=== PATIENT | female | born 1945 | race Caucasian/White ===

== ENCOUNTER 2017-10-20 12:07 | Outpatient (CLI) | payer MEDICARE, BC ==
[~2017-10-20] VITALS: Ht 152.4 cm; Wt 55.9 kg
[2017-10-20 13:19] VITALS: BP 128/77; Ht 152.4 cm; Wt 55.9 kg
== END 2017-10-20 13:36 | disposition home or self-care (01) ==
LOC: D.OPS 12:07
DX: N32.81 Overactive bladder (principal)

== ENCOUNTER 2018-09-13 11:05 | Outpatient (CLI) | payer MEDICARE, BC ==
[~2018-09-13] VITALS: Ht 152.4 cm; Wt 55.5 kg
--- NOTE | ~2018-09-13 | HEMODYNAMI ---
PATIENT:TUSHAR ALARCON MEDICAL RECORD: [id number] : 43 LOCATION:[place] ADMISSION DATE: 09/13/18 Generatedon:09/13/201813:35 Patient name: TUSHAR ALARCON Patient #: [id number] SSN: D OB: 1945 Date of study: 09/13/2018 Page: Of Hemodynamic Procedure Report Patient Data Patient Demographics Procedure consent was obtained First Name: TUSHAR Gender: Female Last Name: AGNES : 1945 Middle Initial: W Age: 73 year(s) Patient #: [id number] Race: Unknown Additional ID: [id number] Contact details [address]: [address] [place] [address] State: [place] City: [place] Zip code: [address] Admission Admission Data Admission Date: 09/13/2018 Admission Time: 11:05 Procedure Procedure Types Cath Procedure Diagnostic Procedure LHC LHC w/Coronaries Procedure Description Procedure Date Procedure Date: 09/13/2018 Procedure Start Time: 13:06 Procedure End Time: 13:32 Procedure Staff Name Function Abhilash Sandoval MD Performing Physician Caitlin Denis RT Monitor Oz King RN Nurse Richie Guardado RT Scrub Procedure Data Cath Procedure Fluoroscopy Diagnostic fluoroscopy Total fluoroscopy Time: 9.1 time: 9.1 min min Diagnostic fluoroscopy Total fluoroscopy dose: 151 dose: 151 mGy mGy Contrast Material Contrast Material Type Amount (ml) Isovue 370 66 Entry Location Entry Primary Successful Side Size Upsize Upsize Entry Closure Irwin ccessful Closure Location (Fr) 1 (Fr) 2 (Fr) Remarks Device Remarks Radial Right 6 Fr Mechanical artery Short Compression Estimated blood loss: 10 ml Diagnostic catheters Device Type Used For End Catheter Placement DIAGNOSTIC [place] 110cm 5 Procedure Fr catheter ([id number]) DIAGNOSTIC AL1 5Fr Procedure catheter ([id number]) DIAGNOSTIC [place] 110cm 5 Procedure Fr catheter ([id number]) Procedure Complications No complications Procedure Medications Medication Administration Route Dosage Oxygen etCO2 Nasal cannula 2 l/min Lidocaine 2% added to field 20 Heparin Flush Bag added to field 2 bags (1000units/500ml NS) 0.9% NaCl I.V. 100 ml/hr Versed I.V. 1 mg Fentanyl I.V. 50 mcg Fentanyl I.V. 50 mcg Versed I.V. 1 mg Radial Cocktail I.A. 1 syringe (Verapamil 2mg/Nitro 400mcg/Heparin 1500units) Versed I.V. 1 mg Versed I.V. 1 mg Fentanyl I.V. 50 mcg Hemodynamics Rest Heart Rate: 79 (bpm) Pressure Samples Time Site Value (mmHg) Purpose Heart Use Rate(bpm) 13:11 AO 119/67(89) Snapshot 81 13:24 LV 179/1,23 Snapshot 84 Gradients Valve Time Site Site Mean SEP/DFP Peak To Heart Use 1 2 (mmHg) (sec/min) Peak Rate (mmHg) (bpm) Aortic 13:24 LV AO 78 Snapshots Pre Cath Intra NCS Post Cath Vital Signs Time Heart Resp SPO2 etCO2 NIBP (mmHg) Rhythm Pain Sedation Rate (ipm) (%) (mmHg) Status Level (bpm) 12:57:25 78 22 99 0 141/71(98) NSR 0 (11) 10(A) , No pain 13:01:27 76 15 100 11.9 128/73(105) NSR 0 (11) 10(A) , No pain 13:05:37 76 17 93 27.6 116/67(93) NSR 0 (11) 10(A) , No pain 13:09:47 83 12 95 20.2 125/65(95) NSR 0 (11) 10(A) , No pain 13:13:57 82 12 99 26.9 135/73(105) NSR 0 (11) 10(A) , No pain 13:18:09 86 17 99 26.9 129/74(111) NSR 0 (11) 10(A) , No pain 13:22:23 85 14 97 23.9 125/65(106) NSR 0 (11) 10(A) , No pain 13:26:35 87 15 94 10.4 109/61(86) NSR 0 (11) 10(A) , No pain 13:31:34 87 9 89 26.1 Measuring NSR 0 (11) 10(A) , No pain 13:31:46 84 8 100 34.4 133/61(77) NSR 0 (11) 10(A) , No pain Medications Time Medication Route Dose Verified Delivered Reason Notes Effectiveness by by 13:01:21 Oxygen etCO2 2 l/min Abhilash Buffie used for Nasal St Harshad King RN procedure cannula 13:01:28 Lidocaine 2% added 20ml Abhilash Buffie for local to vial St Harshad King RN anesthetic field TURK 13:01:35 Heparin Flush added 2 bags Abhilash Buffie used for Bag to St Harshad King RN procedure (1000units/500ml field TURK NS) 13:01:43 0.9% NaCl I.V. 100 Abhilashmigel Carrascoie Per ml/hr St Harshad King RN physician 13:03:18 Fentanyl I.V. 50 mcg Abhilash Carrascoie for sedation St Harshad King RN, MD 13:03:30 Versed I.V. 1 mg Abhilash Carrascoie for sedation St Harshad King RN, MD 13:06:53 Radial Cocktail I.A. 1 Abhilash Hung for (Verapamil syringe [place] St Patricia vasodilation 2mg/Nitro MD TURK 400mcg/Heparin 1500units) 13:10:12 Versed I.V. 1 mg Abhilash Daniloie for sedation St Harshad King RN, MD 13:10:19 Fentanyl I.V. 50 mcg Abhilash Carrascoie for sedation St Harshad King RN, MD 13:14:47 Versed I.V. 1 mg Abhilash Buffie for sedation St Harshad King RN, MD 13:22:31 Versed I.V. 1 mg Abhilash Buffie for sedation St Harshad King RN, MD 13:22:35 Fentanyl I.V. 50 mcg Abhilash Carrascoie for sedation St Harshad King RN, MD Procedure Log Time Note 12:30:40 Time tracking: Regular hours (M-F 7:00 - 5:00) 12:30:45 Plan of Care:Hemodynamics will remain stable., Cardiac rhythm will remain stable., Comfort level will be maintained., Respiratory function will remain adequate., Patient/ family verbilizes understanding of procedure., Procedure tolerated without complication., Recovers from procedure without complications.. 12:40:06 Caitlin Counts RT(R) sent for patient. Start room use. 12:48:51 Patient received from Pre/Post Procedure Room to CCL 3 Alert and oriented. Tansferred to table in Supine position. 12:48:52 Warm blankets applied, and nancy hugger turned on for patient comfort. 12:48:53 Correct patient and procedure confirmed by team. 12:48:54 Signed procedure consent form obtained from patient. 12:48:55 ECG and BP/O2 sat monitors applied to patient. 12:56:16 Baseline sample Acquired. 12:56:16 Vital chart was started 12:56:20 Rhythm: sinus rhythm 12:56:35 Full Disclosure recording started 13:00:07 H&P Date Dictated: 09/06/2018 Within 30 days and on chart., H&P Addendum completed by physician on day of procedure. (MUST COMPLETE FOR ALL OUTPATIENTS). 13:00:08 Pre-procedure instructions explained to patient. 13:00:08 Pre-op teaching completed and patient verbalized understanding. 13:00:11 Family in patients room. 13:00:13 Patient NPO since Midnight. 13:00:14 Is the patient allergic to Iodine/contrast media? No. 13:00:18 Is patient on blood thinner?No 13:00:22 Patient diabetic? No. 13:00:29 Previous problem with sedation/anesthesia? No ? 13:00:30 Snore? No 13:00:31 Sleep apnea? No 13:00:32 Deviated septum? No 13:00:32 Opens mouth fully? Yes 13:00:33 Sticks out tongue? Yes 13:00:35 Airway obstruction? No ? 13:00:36 Dentures? No ? 13:00:39 Pre procedure: right dorsailis pedis pulse 1+ Palpable, but thready & weak; easily obliterated 13:00:41 Modified Roberth's test Ulnar < 7 seconds 13:00:43 Patient pain scale 0/10 ?. 13:00:50 IV patent on arrival in left forearm with 0.9% NaCl at KVO. 13:00:59 Lab results completed and on chart. 13:01:03 Right Radial & Right Groin area was prepped with chlora-prep and draped in sterile fashion 13:01:04 Alarms reviewed by R. N. 13:01:05 Sharps counted by scrub and verified by R.N. 13:01:21 Oxygen 2 l/min etCO2 Nasal cannula was administered by Oz King RN; used for procedure; 13:01:28 Lidocaine 2% 20ml vial added to field was administered by Oz King RN; for local anesthetic; 13:01:35 Heparin Flush Bag (1000units/500ml NS) 2 bags added to field was administered by Oz King RN; used for procedure; 13:01:43 0.9% NaCl 100 ml/hr I.V. was administered by Oz King RN; Per physician; 13:02:10 --------ALL STOP TIME OUT------ 13:02:10 Final Timeout: patient, procedure, and site verified with staff and physician. All members of the team are in agreement. 13:02:13 Right Radial & Right Groin site verified by team. 13:02:16 Maximum allowable Isovue 370 dose 300ml. Physician notified. (300ml for normal creatinines. For patients with creatinine of 1.7 or higher multiply weight(kg) x 5 divided by creatinine.) 13:02:21 Fire Safety Assessment: A--An alcohol-based skin anteseptic being used preoperatively., C--Open oxygen or nitrous oxide is being used., D--An ESU, laser, or fiber-optic light is being used. 13:02:23 Physical assessment completed. ASA score P 2 - A patient with mild systemic disease as per Abhilash Sandoval MD. 13:02:26 Sedation plan: IV Moderate Sedation Medication:Versed, Fentanyl 13:03:18 Fentanyl 50 mcg I.V. was administered by Oz King RN; for sedation; 13:03:30 Versed 1 mg I.V. was administered by Oz King RN; for sedation; 13:04:30 Use device set Radial Dx or PCI 13:04:31 Tegaderm 4 x 4 (1626W) opened to sterile field. 13:04:31 ACIST Manifold (52545) opened to sterile field. 13:04:32 ACIST Hand Control (47391) opened to sterile field. 13:04:33 ACIST Syringe (84014) opened to sterile field. 13:04:34 Medline Cath Pack ([id number]) opened to sterile field. 13:04:34 Bag Decanter () opened to sterile field. 13:04:34 DIAGNOSTIC WIRE .035 260cm J wire (671438) opened to sterile field. 13:04:35 MBrace Wrist Support ([id number]) opened to sterile field. 13:04:37 SHEATH 6FR Slender (29-1644) opened to sterile field. 13:06:12 Procedure started. 13:06:17 Local anesthetic to right radial artery with Lidocaine 2% by Abhilash Sandoval MD.INITIAL ACCESS ONLY 13:06:53 Radial Cocktail (Verapamil 2mg/Nitro 400mcg/Heparin 1500units) 1 syringe I.A. was administered by Abhilash Sandoval MD; for vasodilation; 13:07:05 A 6 Fr Short sheath was inserted into the Right Radial artery 13:07:57 A DIAGNOSTIC [place] 110cm 5 Fr catheter (219066) was advanced over the wire and used for Procedure. 13:10:05 GLIDE WIRE ANGLE 260cm (JD6629) opened to sterile field. 13:10:12 Versed 1 mg I.V. was administered by Oz King RN; for sedation; 13:10:19 Fentanyl 50 mcg I.V. was administered by Oz King RN; for sedation; 13:10:20 [place] wire used to advance catheter. 13:12:00 Wire removed. 13:12:51 RCA angiography performed. 13:13:04 Catheter exchanged over wire. 13:14:05 GUIDE 6FR JL 3.5 guide catheter ([id number]) opened to sterile field. 13:14:21 6 Fr JL 3.5 guide catheter was inserted over the wire 13:14:47 Versed 1 mg I.V. was administered by Oz King RN; for sedation; 13:16:54 LCA angiography performed. 13:17:23 Catheter exchanged over wire. 13:19:06 ROADRUNNER .035 260 glide wire (W60055) opened to sterile field. 13:19:10 A DIAGNOSTIC AL1 5Fr catheter (626388M) was advanced over the wire and used for Procedure. 13:19:30 Roadrunner wire advanced in attempt to cross the aortic valve. 13:22:03 Catheter exchanged over wire. 13:22:31 Versed 1 mg I.V. was administered by Oz King RN; for sedation; 13:22:35 Fentanyl 50 mcg I.V. was administered by Oz King RN; for sedation; 13:23:58 A DIAGNOSTIC [place] 110cm 5 Fr catheter (477574) was advanced over the wire and used for Procedure. 13:25:27 LV angiography performed. 13:25:28 LV gram done using SELLERS 13::37 EF : 65 % 13:25:40 LV hemodynamics recorded. 13::43 Injector settings: Ml/sec: 7, Volume: 15, 13:25:47 Catheter exchanged over wire. 13:25:51 TR BAND Standard ([id number]) opened to sterile field. 13:28:19 Sheath removed intact; hemostasis achieved with Mechanical Compression to the Right Radial artery. 13:28:20 Procedure ended.(Physican Out) 13::53 Fluoroscopy time 09.10 minutes. 13::57 Flurop Dose total: 151 13::57 Fluoroscopy dose: 151 mGy 13:29:02 Contrast amount:Isovue 370 66ml. 13:29:03 Sharps counted by scrub and verified by R.N. 13:30:01 TR band inflated with 12cc of air. 13:30:02 Insertion/operative site no bleeding no hematoma. 13:30:03 Post Procedure Pulses reassessed and unchanged 13:30:06 Post-procedure physical assessment completed. ASA score P 2 - A patient with mild systemic disease as per Abhliash Sandoval MD. 13:30:08 Post procedure rhythm: unchanged. 13:30:11 Estimated blood loss: 10 ml 13:30:13 Post procedure instruction explained to patient.Patient verbalizes understanding. 13:30:13 Patient needs reinforcement of post procedure teaching. 13:30:56 Procedure and supply charges have been captured, reviewed, submitted and are correct. 13:30:59 Procedure Complication : No complications 13:32:11 Vital chart was stopped 13:32:11 See physician's report for complete and final results. 13:32:15 Report given to Pre/Post Procedure Room. 13:32:20 Patient transfered to Pre/Post Procedure Room with Stretcher. 13:32:22 Procedure ended. 13:32:22 Full Disclosure recording stopped 13:34:38 End room use (Document Last) Device Usage Item Name Manufacture Quantity Catalog Hospital Part Current Minimal Lot# / Number Charge Number Stock Stock Serial# Code Tegaderm 4 3M 1 1626W [id number] [id number] 002797 5 x 4 (1626W) ACIST Acist 1 88862 564552 018234 888898 5 Manifold Medical (07846) Systems Inc ACIST Hand Acist 1 68575 518666 160920 711264 5 Control Medical (19266) Systems Inc ACIST Acist 1 74149 943487 065591 500528 20 Syringe Medical (15810) Systems Inc Medline Medline 1 [id number] 728870 19036 425544 5 Cath Pack ([id number]) Bag Microtek 1 2002S 746197 06644 542836 5 Decanter Medical Inc. (2001S) DIAGNOSTIC [facility] [place] 1 538253 440104 353787 297382 30 WIRE .035 260cm J wire (864354) MBrace Advanced 1 140-0250-00 177130 38363 064399 5 Wrist Vascular Support Dynamics ([id number]) SHEATH 6FR Terumo 1 [id number] 794115 222834 061500 5 Slender (80-1060) DIAGNOSTIC Terumo 1 40-7933 155480 929147 954928 5 [place] 110cm 5 Fr catheter (251254) GLIDE WIRE Terumo 1 CY4921 764297 262715 706408 5 ANGLE 260cm (HG5379) GUIDE 6FR Medtronic 1 [id number] 945518 96151 933598 1 JL 3.5 guide catheter (IK8EA15) [facility] 1 C60169 704185 646406 068163 5 .035 260 glide wire (M80046) DIAGNOSTIC Cardinal 1 130549S 306246 859544 707994 15 AL1 5Fr Health catheter (152524U) TR BAND Terumo 1 [id number] 373242 368412 398923 40 Standard ([id number]) Signature Audit [place] Stage Time Signature Unsigned Intra-Procedure 09/13/2018 Richie Guardado 1:35:28 PM RT(R) Signatures Monitor : Caitlin Signature : Counts RT Date : Time : [facility] [address] [place] [id number]
[2018-09-13] MEDS ORDERED: TRAZODONE HCL150 MG PO (11:22)
[2018-09-13] MEDS ORDERED: NORVASC5 MG PO (11:22)
[2018-09-13] MEDS ORDERED: CYMBALTA60 MG PO (11:23)
[2018-09-13] MEDS ORDERED: WELLBUTRIN XL150 M1 PO (11:23)
[2018-09-13] MEDS ORDERED: CYMBALTA30 MG PO (11:23)
[2018-09-13] MEDS ORDERED: DONEPEZIL HCL10 MG PO (11:24)
[2018-09-13 11:35] VITALS: BP 140/69; BMI 23.8
[2018-09-13 11:58] LABS: ANION GAP 14.8 mmol/L (8-16); CALCIUM 9.3 mg/dL (8.5-10.1); CARBON DIOXIDE 23.7 mmol/L (21.0-32.0); CREATININE - SERUM 0.9 mg/dL (0.6-1.3); POTASSIUM - SERUM 3.5 mmol/L (3.5-5.1)
[2018-09-13 12:06] LABS: HEMATOCRIT 39.4 % (36.0-48.0); LYMPHOCYTES 21.5 % (15-50); MCH 27.4 pg (26.0-34.0); MCV 82.9 fL (80.0-100.0); MEAN PLATELET VOLUME 10.2 fL (7.4-10.4); NEUTROPHILS 67.9 % (40-80); PLATELET COUNT 318 10x3/uL (130-400); RBC 4.75 10x6/uL (4.00-5.40); RDW 14.2 % (11.5-14.5); WBC 7.1 10x3/uL (4.8-10.8)
--- NOTE | 2018-09-13 13:45 | NUR ---
PHYSICIAN AT BEDSIDE TO UPDATE PATIENT AND FAMILY.
--- NOTE | 2018-09-13 13:55 | NUR ---
PATIENT AWAKE, SITTING UP IN BED EATING TURKEY SANDWICH AND DRINKING WATER, NO N/V. RIGHT TR BAND IN PLACE, NO S/S OF BLEEDING OR HEMATOMA. NO C/O PAIN, NUMBNESS, OR TINGLING. VSS ON 1L NC. SPOUSE PRESENT AT BEDSIDE.
--- NOTE | 2018-09-13 14:30 | NUR ---
BEGIN AIR REMOVAL PROTOCOL FOR TR BAND, 4CC OF AIR REMOVED, NO S/S OF BLEEDING OR HEMATOMA. NO C/O PAIN, NUMBNESS, OR TINGLING. VSS ON ROOM AIR. NO N/V.
--- NOTE | 2018-09-13 15:01 | NUR ---
DR. BROWN AT BEDSIDE TO EDUCATE AND DISCUSS SURGICAL OPTIONS WITH PATIENT AND PATIENT SPOUSE. RIGHT TR BAND IN PLACE, NO S/S OF BLEEDING OR HEMATOMA.
--- NOTE | 2018-09-13 15:05 | NUR ---
4CC OF AIR REMOVED FROM TR BAND, NO S/S OF BLEEDING OR HEMATOMA. VERBAL AND WRITTEN DISCHARGE INSTRUCTIONS GIVEN TO PATIENT AND SPOUSE, BOTH VOICE UNDERSTANDING. VSS ON ROOM AIR.
--- NOTE | 2018-09-13 15:25 | NUR ---
IV REMOVED. VSS ON ROOM AIR. RIGHT TR BAND IN PLACE, NO S/S OF BLEEDING OR HEMATOMA.
--- NOTE | 2018-09-13 15:50 | NUR ---
PT AGREES TO HAVE CABG AT [facility]. [place] [facility] [place] TO DIS[place]. TR BAND REMOVED. DRESSING APPLIED. NO BLEEDING/HEMATOMA NOTED. TOLERATED WELL.
--- NOTE | 2018-09-13 15:59 | NUR ---
GROCERY CARRIER AT BEDSIDE FOR CAROTID DOPPLERS
[2018-09-13 16:02] VITALS: Ht 152.4 cm; Wt 55.5 kg
--- NOTE | 2018-09-13 16:15 | NUR ---
PT TAKEN OUT TO VEHICLE BY WHEELCHAIR. NO S/S OF DISTRESS NOTED. ALL BELONGINGS AND PAPERWORK IN HAND.
[2018-09-14] MEDS ORDERED: NAMENDA5 MG PO (11:04)
[2018-09-14] MEDS ORDERED: OMEPRAZOLE20 M1 PO (11:05)
--- NOTE | 2018-09-19 13:26 | OP ---
PATIENT NAME: TUSHAR ALARCON MEDICAL RECORD: [id number] :43 LOCATION:D.CAT ADMISSION DATE: SURGEON: EVER PETERSEN MD DATE OF OPERATION: 09/13/2018 PROCEDURE: Left heart catheterization, selective coronary angiography, right radial approach. CATHETERS: [place] catheter as well as AL catheter and a JL4. Procedure was well tolerated. The patient returned to the gama, sheath removed. Adequate hemostasis was obtained. FINDINGS: Left ventriculography in 30-degree SELLERS view shows no wall motion. Gradient across the aortic valve is 60 mmHg on pullback. CORONARY ANATOMY: LEFT MAIN: Left main is free of disease. LAD: Has a tight stenosis in its proximal third of approximately 80% to 90%. CIRCUMFLEX: Codominant system, has a mid portion stenosis of 80% somewhat more complex. RIGHT CORONARY ARTERY: Totally occluded and fills via left to right collaterals. IMPRESSION: Multiple medical risks for coronary artery disease AAAS. CT surgeon is consulted for valve CABG. TRANSINT:[id number] Voice Confirmation ID: [id number] DOCUMENT ID: [id number] EVER PETERSEN MD at 1326 CC: [id number] DICTATION DATE: 09/13/18 1333 KIER HAND: 09/13/18 1350 DEP CLI 09/13/18 [id number] [place] [address]
== END 2018-09-13 16:15 | disposition home or self-care (01) ==
LOC: D.CATH 11:05
PROVIDERS: ATTEND Internal Medicine Interventional Cardiology
DX: I25.119 Atherosclerotic heart disease of native coronary artery with unspecified angina pectoris (principal); Z01.812 Encounter for preprocedural laboratory examination; I35.0 Nonrheumatic aortic (valve) stenosis; F03.90 Unspecified dementia, unspecified severity, without behavioral disturbance, psychotic disturbance, mood disturbance, and anxiety; I10 Essential (primary) hypertension; E78.5 Hyperlipidemia, unspecified; Z82.49 Family history of ischemic heart disease and other diseases of the circulatory system; K21.9 Gastro-esophageal reflux disease without esophagitis; Z96.653 Presence of artificial knee joint, bilateral; Z79.899 Other long term (current) drug therapy

== ENCOUNTER 2018-09-14 07:44 | Inpatient (IN) | payer MEDICARE, BC ==
[~2018-09-14] VITALS: Ht 152.4 cm; Wt 56.5 kg
[~2018-09-14 07:44] MED LIST: CYMBALTA30 MG PO; CYMBALTA60 MG PO; DONEPEZIL HCL10 MG PO; NORVASC5 MG PO; TRAZODONE HCL150 MG PO; WELLBUTRIN XL150 M1 PO
[2018-09-14] MEDS ORDERED: NAMENDA5 MG PO (11:04)
[2018-09-14] MEDS ORDERED: OMEPRAZOLE20 M1 PO (11:05)
[2018-09-14 13:03] LABS: BASOPHILS 0.2 % (0-2); EOSINOPHILS 1.2 % (0-7); HEMATOCRIT 39.6 % (36.0-48.0); HEMOGLOBIN 13.2 g/dL (12-16); IMMATURE GRANULOCYTES 0.4 % (0-5); LYMPHOCYTES 21.6 % (15-50); MCH 27.4 pg (26.0-34.0); MCHC 33.3 g/dL (31.0-37.0); MCV 82.3 fL (80.0-100.0); MEAN PLATELET VOLUME 10.8 fL (7.4-10.4); MONOCYTES 6.4 % (2-11); NEUTROPHILS 70.2 % (40-80); PLATELET COUNT 362 10x3/uL (130-400); RBC 4.81 10x6/uL (4.00-5.40); RDW 14.4 % (11.5-14.5)
[2018-09-14 13:09] LABS: INR 1.04 (0.85-1.17); PROTIME 13.1 SECONDS (11.6-15.0)
[2018-09-14 13:10] LABS: APTT 27.9 SECONDS (22.8-39.4)
[2018-09-14 13:22] LABS: ALBUMIN 3.9 g/dL (3.4-5.0); ALKALINE PHOSPHATASE 134 U/L (46-116); ALT (SGPT) 26 U/L (10-68); BILIRUBIN - TOTAL 0.32 mg/dL (0.2-1.3); CALC OSMOLALITY 261 mosm/kg (275-300); CALCIUM 9.3 mg/dL (8.5-10.1); CARBON DIOXIDE 22.6 mmol/L (21.0-32.0); CHLORIDE - SERUM 97 mmol/L (98-107); CHOLESTEROL, TOTAL 256 mg/dL (0-200); CREATININE - SERUM 0.7 mg/dL (0.6-1.3); GLUCOSE 84 mg/dL (74-106); PHOSPHOROUS 3.1 mg/dL (2.5-4.9); POTASSIUM - SERUM 3.7 mmol/L (3.5-5.1); PROTEIN - SERUM 7.6 g/dL (6.4-8.2); SODIUM 131 mmol/L (136-145); T4 THYROXIN - FREE 1.29 ng/dL (0.76-1.46); THYROID STIMULATING HORMONE 1.99 uIU/mL (0.36-3.74); UREA NITROGEN 13 mg/dL (7-18); URIC ACID 3.3 mg/dL (2.6-7.2); eGFR NON AFRICAN AMERICAN 87 mL/min (90-120)
[2018-09-14 13:54] LABS: APPEARANCE CLEAR (CLEAR); BILIRUBIN NEGATIVE (NEGATIVE); COLOR STRAW (YELLOW); GLUCOSE NEGATIVE (NEGATIVE); KETONE NEGATIVE (NEGATIVE); NITRITE NEGATIVE (NEGATIVE); PROTEIN NEGATIVE (NEGATIVE); SPECIFIC GRAVITY 1.005 (1.005-1.020); UROBILINOGEN NORMAL (NORMAL)
[2018-09-14 13:55] LABS: WHITE CELLS - URINE 0-5 /hpf (0-5)
[2018-09-14 13:57] LABS: BACTERIA FEW /hpf (NONE SEEN); EPITHELIAL CELLS 0-5 /hpf (0-5); RED CELLS - URINE OCC /hpf (0-5)
[2018-09-15] VITALS (31 sets, daily range): BP systolic 75–157; BP diastolic 39–76; BMI 29.7; BMI 23.4
[2018-09-15] MEDS ORDERED: TRAZODONE HCL150 MG PO (05:53)
[2018-09-15] MEDS ORDERED: CYMBALTA30 MG (05:54)
[2018-09-15 09:14] LABS: APPEARANCE SL CLDY (CLEAR); BILIRUBIN NEGATIVE (NEGATIVE); COLOR YELLOW (YELLOW); GLUCOSE NEGATIVE (NEGATIVE); KETONE MODERATE mg/dL (NEGATIVE); NITRITE NEGATIVE (NEGATIVE); PROTEIN TRACE mg/dL (NEGATIVE); SPECIFIC GRAVITY 1.025 (1.005-1.020); UROBILINOGEN NORMAL (NORMAL)
[2018-09-15 09:15] LABS: AMORPHOUS SEDIMENT <1+ /lpf (NONE SEEN); BACTERIA MODERATE /hpf (NONE SEEN); EPITHELIAL CELLS 0-5 /hpf (0-5); MUCUS <1+ /lpf (NONE SEEN); RED CELLS - URINE 0-5 /hpf (0-5); WHITE CELLS - URINE 0-5 /hpf (0-5)
[2018-09-15 13:43] LABS: MCHC 32.7 g/dL (31.0-37.0); MCV 82.7 fL (80.0-100.0); MEAN PLATELET VOLUME 9.4 fL (7.4-10.4); RDW 14.2 % (11.5-14.5); WBC 9.4 10x3/uL (4.8-10.8)
[2018-09-15 13:45] LABS: HEMATOCRIT 19.6 % (36.0-48.0); HEMOGLOBIN 6.4 g/dL (12-16); RBC 2.37 10x6/uL (4.00-5.40)
[2018-09-15 13:51] LABS: APTT 32.4 SECONDS (22.8-39.4)
[2018-09-15 13:54] LABS: INR 1.52 (0.85-1.17); PROTIME 17.7 SECONDS (11.6-15.0)
--- NOTE | 2018-09-15 18:28 | NUR ---
1500-RECCIEVED FROM OR ACCOMPANIED BY OR TEAM-PLACED TO VENT PER RT-PLACED TO MONITOR FOR SR -PACER ON STANDBY- 164-DR BROWN-NOTIFIED OF PA PRESSURES-NO FURTHER ORDERS- 6613-MMD-JXYVR-RESULTSCALLED TO DR BROWNUSHJV-RVPLLH-YV KEEP ON VENT-30MIN CO2 LEVEL>45 1829-RECHECKED ABG-PT IN PANIC-BANGING AT SIDE RAILS-RESULTS CALLED TO DR BROWN-ORDER RECIEVED TO EXTUBATE
--- NOTE | 2018-09-15 19:11 | NUR ---
ORAL CARE DONE WITH PERIDEX
--- NOTE | 2018-09-15 19:30 | NUR ---
SHIFT ASSESSMENT COMPLETE, PER NURSING FLOWSHEET, RESPIRATORY CONTINUES AT BEDSIDE FOR THIS RECENTLY EXTUBATED PATIENT. SOFT BUE WRIST RESTRAINTS HAVE BEEN REMOVED, PATIENT IS VERY HOARSE AND C/O SORE THROAT, WILL CONTINUE AT PATIENT BEDSIDE FOR MONITORING, PATIENT REPOSITIONED, ORAL CARE PROVIDED
--- NOTE | 2018-09-15 20:00 | NUR ---
AND DAUGHTERS X2 AT BEDSIDE, UPDATE GIVEN QUESTIONS ANSWERED
--- NOTE | 2018-09-15 21:00 | NUR ---
PATIENT REPOSITIONED, IN ATTEMPTS TO HELP RESOLVE PAIN AND RESTLESSNESS, PAIN MEDICATION PREVIOUSLY GIVEN, CONTINUING AT PATIENT BEDSIDE FOR MONITORING
[2018-09-15 21:24] LABS: BASOPHILS 0.1 % (0-2); EOSINOPHILS 0.1 % (0-7); IMMATURE GRANULOCYTES 0.2 % (0-5); LYMPHOCYTES 4.2 % (15-50); MCH 27.5 pg (26.0-34.0); MCHC 32.6 g/dL (31.0-37.0); MCV 84.1 fL (80.0-100.0); MEAN PLATELET VOLUME 10.4 fL (7.4-10.4); MONOCYTES 7.2 % (2-11); NEUTROPHILS 88.2 % (40-80); PLATELET COUNT 212 10x3/uL (130-400); RDW 14.3 % (11.5-14.5)
[2018-09-15 21:27] LABS: HEMATOCRIT 29.1 % (36.0-48.0); HEMOGLOBIN 9.5 g/dL (12-16); RBC 3.46 10x6/uL (4.00-5.40); WBC 12.7 10x3/uL (4.8-10.8)
[2018-09-15 21:38] LABS: ALBUMIN 3.1 g/dL (3.4-5.0); ANION GAP 13.8 mmol/L (8-16); BILIRUBIN - TOTAL 0.52 mg/dL (0.2-1.3); CALCIUM 7.9 mg/dL (8.5-10.1); CARBON DIOXIDE 26.7 mmol/L (21.0-32.0); CREATININE - SERUM 0.9 mg/dL (0.6-1.3); MAGNESIUM - SERUM 2.1 mg/dL (1.8-2.4); POTASSIUM - SERUM 4.5 mmol/L (3.5-5.1); PROTEIN - SERUM 5.6 g/dL (6.4-8.2)
--- NOTE | 2018-09-15 22:20 | NUR ---
DR Baeza CALLED, UPDATE GIVEN, NEW ORDERS RECEIVED
--- NOTE | 2018-09-15 23:00 | NUR ---
RE-ASSESSMENT COMPLETE, PER NURSING FLOWSHEET. PATIENT REPOSITIONED, PATIENT TOLERATING ICE CHIPS AND H20 WITH PO MEDS WITH NO N/V, CONTINUE POC
--- NOTE | 2018-09-15 23:30 | NUR ---
PATIENT SAT UP ON BEDSIDE TO CADEN Solis NURSE ASSISST. PATIENT TOLERATED WELL.
--- NOTE | 2018-09-15 23:50 | NUR ---
PRBC ORDER INITATED PER DR Baeza ORDER.
[2018-09-16] VITALS (37 sets, daily range): BP systolic 100–142; BP diastolic 39–68; Ht 152.4 cm; Wt 56.5 kg
--- NOTE | 2018-09-16 01:00 | NUR ---
PATIENT REPOSITIONED, PO PAIN MEDICATIONS PREVIOUSLY GIVEN, THIS NURSE AT BEDSIDE FOR CONTINUOUS MONITORING OF THIS PATIENT, CARRILLO CARE PROVIDED
--- NOTE | 2018-09-16 02:00 | NUR ---
PRBC INFUSION COMPLETE.
--- NOTE | 2018-09-16 03:00 | NUR ---
RE-ASSESSMENT COMPLETE. PATIENT REPOSITIONED, ORAL CARE PROVIDED. CONTINUOUSLY MONITORING VS, PATIENT IS CURRENTLY VERY CONFUSED AND AGGITATED. THIS NURSE CONTINUES AT BEDSIDE
--- NOTE | 2018-09-16 05:00 | NUR ---
PATIENT REPOSITIONED, PARTIAL LINEN CHANGE, VIKTOR REMAINS OFF SINCE 114, CONTINUING TO MONITOR FROM DOOR OF PATIENT ROOM, PRESENCE IN HER ROOM EXACERBATES AGGITATION/ANXIETY. ALTHOUGH, THIS PATIENT REMAINS IN LINE OF SITE FOR THIS NURSE
[2018-09-16 05:19] LABS: HEMOGLOBIN 10.3 g/dL (12-16); MCH 27.8 pg (26.0-34.0); MCHC 33.2 g/dL (31.0-37.0); MCV 83.6 fL (80.0-100.0); MEAN PLATELET VOLUME 10.3 fL (7.4-10.4); RBC 3.71 10x6/uL (4.00-5.40); RDW 14.4 % (11.5-14.5); WBC 12.4 10x3/uL (4.8-10.8)
[2018-09-16 05:30] LABS: ALBUMIN 2.9 g/dL (3.4-5.0); ALKALINE PHOSPHATASE 71 U/L (46-116); ALT (SGPT) 30 U/L (10-68); BILIRUBIN - TOTAL 0.53 mg/dL (0.2-1.3); CALCIUM 7.6 mg/dL (8.5-10.1); CARBON DIOXIDE 23.6 mmol/L (21.0-32.0); CHLORIDE - SERUM 103 mmol/L (98-107); POTASSIUM - SERUM 4.3 mmol/L (3.5-5.1); PROTEIN - SERUM 5.6 g/dL (6.4-8.2); SODIUM 137 mmol/L (136-145); UREA NITROGEN 15 mg/dL (7-18)
[2018-09-16 05:38] LABS: CALC OSMOLALITY 276 mosm/kg (275-300); CREATININE - SERUM 0.6 mg/dL (0.6-1.3); GLUCOSE 130 mg/dL (74-106); eGFR NON AFRICAN AMERICAN > 90 mL/min (90-120)
--- NOTE | 2018-09-16 08:22 | NUR ---
0730-RECIEVED AWAKE AND ALERT-IN BED WITH HOB 30 DEGREES-AWARE IN HOSPITAL-ABLE TO RELATE SERIES OF EVENTS PRIOR TO HOSPITALIZATION-THEN STATES 'JUST DROPPED OFF AND LEFT '-BEGAN CALLING OUT FOR DAUGHTER -ATTEMPTED TO ORIENT TO SITUATION-WITH NO EFFECT-CALLED DAUGHTER TO REQUEST IF COULD SIT WITH MOTHER DUE TO SEVERE EMOTIONAL AGITATION-PRODUCTIVE COUGH AND ABLE TO SPLINT WITH PILLOW EASILY 0800-ASSISTED PT TO CHAIR-REASSURED DAUGHTER WAS CALLED-AND MAKING ARRANGEMENTS TO COME AND SIT WITH HER-REPITIVELY STATING ' I'M SCARED-NO RESPONSE OR CHANGE TO BEHAVIOR PATTERN WITH REASSURANCE-CLEAR LIQUID DIET TAKEN- 829-CURRENTLY CALLING OUT FOR -ATTEMPTED TO ORIENT -AND AT WORK-PT ABLE TO STATE BUSINESS AND WORK OF
--- NOTE | 2018-09-16 09:55 | OP ---
PATIENT NAME: TUSHAR ALARCON MEDICAL RECORD: [id number] :43 LOCATION:[facility] ADMISSION DATE:09/15/18 SURGEON: WALLY BROWN MD DATE OF OPERATION: 09/15/2018 SURGEON: Wally Brown MD SPEED BELT SANDER: Adolfo Avalos. OPERATION PERFORMED: 1. Aortic valve replacement (19 mm [place] Rosa Integris pericardial bioprosthesis). 2. Coronary artery bypass graft times 2 (left internal mammary to LAD, reverse saphenous vein graft from aorta to obtuse marginal). 3. Endoscopic saphenous vein harvest. PREOPERATIVE DIAGNOSES: Aortic stenosis, coronary artery disease. POSTOPERATIVE DIAGNOSES: Aortic stenosis, coronary artery disease. ANESTHESIA: General endotracheal anesthesia. ESTIMATED BLOOD LOSS: 1. Total cardiopulmonary bypass with Cell Saver retransfusion. 2. One packed red blood cells, one platelet count, two FFP. SPECIMENS: Aortic valve leaflets. COMPLICATIONS: None. CONDITION: Stable. DISPOSITION: CV ICU. OPERATIVE FINDINGS: 1. Transesophageal echocardiography confirmed severe aortic stenosis and calcification of the mitral valve annulus with trace to 1+ mitral regurgitation, no aortic valvular perivalvular insufficiency after replacement and good contractility with left ventricular hypertrophy. 2. Good quality greater saphenous vein. The obtuse marginal as seen was severely diseased down to the bifurcation. The more distal obtuse marginal was small and the inferior wall vessels seen filling by collaterals on the coronary angiograms were not amenable to bypass due to size. 3. LAD severely diseased 1.5 mm vessel with good Doppler signal after anastomosis and after reversal of heparin. 4. Severely calcified aortic valve leaflets and annulus. OPERATIVE INDICATION: Aortic stenosis, coronary artery disease, unstable angina. DESCRIPTION OF PROCEDURE: The patient was brought to the operating suite. General anesthesia obtained. The patient was prepped and draped and greater saphenous vein harvested endoscopically from the right lower extremity. Side branches were divided with electrocautery. The vessel ligated proximally and distally, and removed. Side branches were tied. Thin sides were oversewn. The OPERATIVE REPORT [id number] TUSHAR ALARCON leg was later closed in 2 layers and wrapped with elastic wrap. Median sternotomy incision was made. Subcutaneous tissue was divided with electrocautery. Sternum was divided with a saw. Left hemisternum was elevated. Left pleural cavity was entered. Left internal mammary artery and vein was taken down as a pedicle graft. Sternal retractor was placed. Pericardium was opened. Heparin was given. The aorta was cannulated. Dual stage venous cannula was inserted. The internal mammary was clipped distally midway for anastomosis. The patient was placed on cardiopulmonary bypass. Sites for distal anastomosis were selected. Retrograde cardioplegic cannula was inserted with the heart filled with blood, but the tip of the cannula perforated midpoint of the coronary sinus. The cannula was removed. The perforation was oversewn with Prolene and no further bleeding when inspected later. The antegrade cardioplegia needle was inserted. The patient was cooled. Crossclamp was placed. Cardioplegia was given antegrade including down the completed vein grafts at 15 and 20 minute intervals. Distal anastomoses were performed in standard technique. The left ventricular vent was placed through the right superior pulmonary vein. Aortotomy was performed. Aortic valve visualized. Leaflets removed. All bits of calcium debrided. Thorough irrigation was undertaken protecting the left main. The valve was sized to 19 mm. Pledgeted valve sutures were placed from ventricular to aortic side through the valve ring and the valve was carefully lowered in place. Sutures were tied. Inspecting through the valve, there was no subvalvular obstruction and no loose debris and no evidence of perivalvular spaces. The patient was rewarmed. Aortotomy was closed. Single proximal anastomosis was performed. The aortic root was vented. The left ventricular apex was de-aired using transesophageal echocardiography as a guide and then the crossclamp was removed. Proximal anastomosis was tied down. Flow was restored after deairing the vein graft. The patient was in a spontaneous rhythm after a single defibrillation. Atrial and ventricular pacing wires were placed. The patient was fully rewarmed weaned from cardiopulmonary bypass and was stable. The patient was decannulated. The cannula sites were oversewn. Protamine was given. Thorough irrigation was undertaken. Grafts lay appropriately and hemostasis was assured. The drain was placed in the mediastinum in both pleural cavities. Pericardial fat was loosely reapproximated in midline. The left chest evacuated and irrigated. The internal mammary harvest site was inspected for bleeding. Sternum was closed with wires. Fascia was closed. Subcutaneous tissue was closed. Skin was closed. Dermabond was placed. The needle and sponge counts were reported as correct and the patient was taken to ICU in stable condition. TRANSINT:[id number] Voice Confirmation ID: [id number] DOCUMENT ID: [id number] OPERATIVE REPORT [id number] TUSHAR ALARCON, WALLY Meredith MD at 0955 CC: TALHA PRUITT and EVER PETERSEN MD [id number] DICTATION DATE: 09/15/18 1535 SOUVENIR ASSEMBLER: 09/16/18 0054 ADM IN [id number] [place] [address]
--- NOTE | 2018-09-16 10:58 | NUR ---
929-DAUGHTER AT [facility]-PT APPEARED TO CALM -EASILY RECOGNIZED AND NAMED DAUGHTER- 949- AT [facility]-PT CALM-DR BROWN AT [facility]-PT ABLE TO CONVERSE WITH REASONABLE PARTICIPATION IN MEDICAL CARE PLAN-R RAUL BACA REMOVE DIRECTED-NIBP PLACED 1030-ASSISTED PT TO BED-MIDWAY PT STOPPED ASSISTING-STATED SCREAMED I CAN'T DO THIS -REQUIRED TO STAFF FOR COMPLETE SUPPORT AND RETURN TO BED-PHYSICAL THERAPY CONSULTED REGARDING AMBULATION 1040-DAUGHTER AT [facility] STATED MOTHER 'ITCHY'-REVIEWED WITH PT -NO RASH-NOTED STATED SCALP IS ITCHING-REQUESTING BENADRYL -DR BROWN UPDATED WITH SAME-
--- NOTE | 2018-09-16 12:25 | NUR ---
CALLED INTO RM BY PT DAUGHTER-STATED PT STILL IN PAIN-PT STATED DID NOT WANT NARCOTIC IF MAKING HER LOOPY-STRESSED TO PT DR BROWN BELIEVES NARCOTIC IS EXCABERATING CURRENT ANXIETY-PT AGREEABLE TO WAIT FOR NARCOTIC TABLET
--- NOTE | 2018-09-16 13:48 | NUR ---
DAUGHTER AT [facility]-PT CONTINUES TO TALK ABOUT BEING AFRAID-C/O PAIN TO BACK AND CHEST
--- NOTE | 2018-09-16 14:38 | NUR ---
PHYSICAL THERAPY AT BEDSIDE X2-ASSISTED PT WITH AMBULATION-SEE NOTE-POOR COOPERATION BY PT -CRIED OUT I CAN'T DO THIS-STRONG ENCOURAGEMENT FROM FAMILY TO CONTINUE WITH THERAPY-SR ON MONITOR
--- NOTE | 2018-09-16 18:20 | NUR ---
NOTED PT U/O 2100- IN RM WITH PT -REMARKED OUT LOUD REGARDING LARGE AMOUNT-PT STATED WELL I DRINK A LOT OF WATER-STRESSED TO PT-KEEPING TRACK OF CUPS AND REMINDER OF WATCHING OUT WATER INTAKE-PT STATED HER REFILLED WATER CUPS AT HER REQUEST- NOT PRESENT AT TIME OF DISCUSSION-SPOUSE EDUCATION DONE-AGREEABLE TO ICE CHIPS AT THIS TIME
--- NOTE | 2018-09-16 19:30 | NUR ---
SHIFT ASSESSMENT COMPLETE, PER NURSING FLOWSHEET. PATIENT REPOSTIONED FOR COMFORT, FAMILY CONTINUES AT BEDSIDE
--- NOTE | 2018-09-16 21:00 | NUR ---
PATIENT REPOSITIONED, PAIN MEDICATION GIVEN, WILL RE-ASSESS AND CONTINUE TO MONITOR
--- NOTE | 2018-09-16 23:00 | NUR ---
RE-ASSESSMENT COMPLETE, PATIENT REPOSITIONED, AT BEDSIDE, VSS, CONTINUE POC
[2018-09-17] VITALS (24 sets, daily range): BP systolic 97–136; BP diastolic 50–654
--- NOTE | 2018-09-17 01:00 | NUR ---
PATIENT REPOSITIONED, CARRILLO CARE PROVIDED, ORAL CARE PROVIDED, AT BEDSIDE, VSS
--- NOTE | 2018-09-17 03:00 | NUR ---
RE-ASSESSMENT COMPLETE, PATIENT REPOSITIONED, PATIENT HAS BEEN CALM AND COOPERATIVE, BUT HAS NOT SLEPT FOR THE DURATION OF THIS NURSE'S SHIFT. CONTINUES AT BEDSIDE, WILL CONTINUE TO MONITOR
--- NOTE | 2018-09-17 05:00 | NUR ---
COMPLETE BATH AND LINEN CHANGE, PATIENT UP TO CHAIR X2 2 NURSE MAX ASSIST, VSS, CONTINUE POC
[2018-09-17 06:00] LABS: HEMATOCRIT 27.2 % (36.0-48.0); HEMOGLOBIN 9.3 g/dL (12-16); MCH 28.5 pg (26.0-34.0); MCHC 34.2 g/dL (31.0-37.0); MCV 83.4 fL (80.0-100.0); MEAN PLATELET VOLUME 10.8 fL (7.4-10.4); RBC 3.26 10x6/uL (4.00-5.40); RDW 14.7 % (11.5-14.5); WBC 11.3 10x3/uL (4.8-10.8)
[2018-09-17 06:13] LABS: ALBUMIN 2.5 g/dL (3.4-5.0); ALKALINE PHOSPHATASE 80 U/L (46-116); ALT (SGPT) 26 U/L (10-68); BILIRUBIN - TOTAL 0.57 mg/dL (0.2-1.3); CALCIUM 8.2 mg/dL (8.5-10.1); CARBON DIOXIDE 27.7 mmol/L (21.0-32.0); CHLORIDE - SERUM 100 mmol/L (98-107); CREATININE - SERUM 0.6 mg/dL (0.6-1.3); GLUCOSE 103 mg/dL (74-106); PROTEIN - SERUM 5.5 g/dL (6.4-8.2); SODIUM 135 mmol/L (136-145); eGFR NON AFRICAN AMERICAN > 90 mL/min (90-120)
[2018-09-17 06:15] LABS: CALC OSMOLALITY 267 mosm/kg (275-300); POTASSIUM - SERUM 3.6 mmol/L (3.5-5.1); UREA NITROGEN 7 mg/dL (7-18)
--- NOTE | 2018-09-17 10:05 | NUR ---
0715-RECIEVED AWAKE AND ALERT-UP IN CHAIR- AT BEDSDIE-APPEARS CALMER-
--- NOTE | 2018-09-17 10:12 | NUR ---
0930-AMBULATED IN ROOM WITH PHYSICAL THERAPY-TOLERATED WELL
--- NOTE | 2018-09-17 15:09 | NUR ---
AMBULATED WITH PHYSICAL THERAPY
--- NOTE | 2018-09-17 17:30 | NUR ---
1130-DR BROWN AT [facility]-CHEST TUBE X3 DISCONTINUED-BY SAME-PACER WIRES SECURED -DRG CHANGED
--- NOTE | 2018-09-17 19:36 | NUR ---
BEDSIDE SHIFT REPORT GIVEN BY DEPARTING RN. PT LAYING IN BED WITH EYES CLOSED. AAOX. AT BEDSIDE. C/O SIGNIFICANT INCISIONAL PAIN WHEN COUGHING OR YAWNING. WILL GIVE PRN PAIN MED. PULLED 750 ON IS. WILL CONTINUE TO ATTEMPT HIGHER IS PULL. SONNY DRAIN NOTED AND COMPRESSED. RT IJ CVL SALINE LOCKED. RT LEG HARVEST SITE NOTED IN SKIN ASSESSMENT. SAFETY MEASURES IN PLACE, CBIR. ASSESSMENT COMPLETE. SEE FLOWSHEET FOR DETAILS.
--- NOTE | 2018-09-17 20:13 | NUR ---
Nutrition follow-up: Diet advanced to full liquids Labs reviewed Will offer nutritional supplements RDN following.
--- NOTE | 2018-09-17 21:31 | NUR ---
HS MEDS GIVEN. PRN PAIN MED GIVEN. SEE MAR FOR DETAILS.
--- NOTE | 2018-09-17 23:38 | NUR ---
REASSESSMENT COMPLETE. NO NEW CHANGES IN PT CONDITION. AWAKE WITH LIGHTS OUT SHOWING NO SS OF DISTRESS. FAMILY REMAINS AT BEDSIDE. DENIES ANY PAIN OR NEEDS AT THIS TIME. SAFETY MEASURES IN PLACE. CBIR.
[2018-09-18] VITALS (24 sets, daily range): BP systolic 108–133; BP diastolic 46–64
--- NOTE | 2018-09-18 02:39 | NUR ---
PT FAMILY CAME TO NURSING UNIT STATING PT IN PAIN. UPON ENTERING ROOM, PT CONFIRMED INCINSIONAL PAIN RATING A 5/10 ON NUMERIC PAIN SCALE. PRN PAIN MED GIVEN.
--- NOTE | 2018-09-18 03:40 | NUR ---
REASSESSMENT COMPLETE. NO CHANGES NOTED IN PT CONDITION. NO SS OF DISTRESS NOTED. VSS. SAFETY MEASURES IN PLACE. CBIR.
[2018-09-18 06:19] LABS: HEMATOCRIT 26.6 % (36.0-48.0); HEMOGLOBIN 8.7 g/dL (12-16); MCH 27.7 pg (26.0-34.0); MCHC 32.7 g/dL (31.0-37.0); MCV 84.7 fL (80.0-100.0); RBC 3.14 10x6/uL (4.00-5.40); RDW 15.3 % (11.5-14.5); WBC 9.1 10x3/uL (4.8-10.8)
[2018-09-18 06:49] LABS: ALBUMIN 2.1 g/dL (3.4-5.0); ALKALINE PHOSPHATASE 85 U/L (46-116); ALT (SGPT) 21 U/L (10-68); BILIRUBIN - TOTAL 0.43 mg/dL (0.2-1.3); CALC OSMOLALITY 272 mosm/kg (275-300); CALCIUM 8.5 mg/dL (8.5-10.1); CARBON DIOXIDE 28.6 mmol/L (21.0-32.0); CHLORIDE - SERUM 102 mmol/L (98-107); GLUCOSE 88 mg/dL (74-106); POTASSIUM - SERUM 3.8 mmol/L (3.5-5.1); PROTEIN - SERUM 5.4 g/dL (6.4-8.2); SODIUM 138 mmol/L (136-145); UREA NITROGEN 6 mg/dL (7-18)
[2018-09-18 06:50] LABS: CREATININE - SERUM 0.4 mg/dL (0.6-1.3); eGFR NON AFRICAN AMERICAN > 90 mL/min (90-120)
--- NOTE | 2018-09-18 07:00 | NUR ---
PT RESTING IN BED AWAKE ALERT AND ORIENTED. FAMILY MEMBER IN ROOM. VSS. NO COMPLAINTS. WILL CONTINUE TO MONITOR
--- NOTE | 2018-09-18 09:00 | NUR ---
PT ASSISTED PT OUT OF BED AND AMBULATED AROUND ROOM WITH WALKER TO BSC. PT HAD LARGE SEMIFORMED BM. NURSE CLEANED. TRANSFERRED PATIENT TO SIT UP IN CHAIR. VSS. WILL CONTINUE TO MONITOR
--- NOTE | 2018-09-18 11:00 | NUR ---
PT SITTING UP IN CHAIR AWAKE ALERT AND ORIENTED C VSS. NO COMPLAINTS. CALL GIRON IN REACH. WILL CONTINUE TO MONITOR
--- NOTE | 2018-09-18 13:00 | NUR ---
PHYSICAL THERAPY AMBULATED PT ABOUT 25 FEET DOWN POLO WITH WALKER THEN ASSISTED BACK TO CHAIR.
--- NOTE | 2018-09-18 15:00 | NUR ---
ASSISTED PATIENT BACK TO BED FROM CHAIR SHE IS REALLY TOO TIRED TO SIT UP ANY LONGER AND BOTTOM HURTS. PATIENT DID WELL IN PHYSICAL THERAPY TODAY.
--- NOTE | 2018-09-18 17:00 | NUR ---
CHANGED SUBSTERNAL DRESSING. CLEANED WITH BETA DINE AND APPLIED BIOPATCHES. COVERED WITH GUAZE AND TEGADERM.
--- NOTE | 2018-09-18 18:00 | NUR ---
REMOVED CARRILLO CATH. ALSO ASSISTED PT TO BSC FOR SEMIFORMED BM. NURSES CLEANED AND TRANSFERRED BACK TO BED.
--- NOTE | 2018-09-18 18:45 | NUR ---
PLACED PT BACK ON 2L NC FOR O2 SAT 97%. O2 RESPONDED TO 93%. OTHER VSS.
--- NOTE | 2018-09-18 19:01 | NUR ---
REPORT RECEIVED, SHIFT ASSESSMENT COMPLETED PER FLOW SHEET. AAOX4. PPP. RT IJ CVL PATENT, DRESSING C/D/I, SALINE LOCKED. PAULETTE ANDREA AND SCD'S ON. SUBSTERNAL CT TO SONNY DRAIN COMPRESSED. SEE FLOW SHEET FOR COMPLETE ASSESSMENT. DAUGHTER AT BEDSIDE, BOTH PATIENT AND DAUGHTER DENY NEEDS AT THIS TIME. CALL LIGHT WITHIN REACH. WILL CONTINUE TO MONITOR.
--- NOTE | 2018-09-18 19:41 | NUR ---
ASSISSTED PATIENT OOB TO USE BEDSIDE COMMODE PER HER REQUEST, 150 MLS YELLOW UOP EMPTIED. ASSISSTED BACK IN BED. DENIES OTHER NEEDS. CALL LIGHT WITHIN REACH.
--- NOTE | 2018-09-18 21:08 | NUR ---
DAUGHTER AND AT BEDSIDE. SCHEDULED MEDS GIVEN. WATER PROVIDED. NO DIFFICULTY SWALLOWING. DENIES NEEDS. CALL LIGHT WITHIN REACH.
--- NOTE | 2018-09-18 22:30 | NUR ---
PT ASSISTED BACK TO BED. UNABLE TO BEAR WT OR WALK INDEPENDENTLY. BED LINEN CHANGED .ADJUSTED FOR COMFORT. PT ATE APPROXIMATELY 80% OF HIS DINNER TRAY.
--- NOTE | 2018-09-18 23:01 | NUR ---
REASSESSMENT COMPLETED PER FLOW SHEET, SEE FOR DETAILS. NO ACUTE DISTRESS NOTED. ASSISSTED OOB TO BEDSIDE COMMODE, 110 MLS YELLOW UOP, SMALL SOFT BM. ASSISSTED BACK IN BED. DENIES OTHER NEEDS. AT BEDSIDE. CALL LIGHT WITHIN REACH.
[2018-09-19] VITALS (24 sets, daily range): BP systolic 95–163; BP diastolic 45–83
--- NOTE | 2018-09-19 01:00 | NUR ---
RESTING, NO ACUTE DISTRESS NOTED. WILL CONTINUE TO MONITOR.
--- NOTE | 2018-09-19 02:09 | NUR ---
PATIENT COMPLAINING OF BACK PAIN, PRN PERCOCET GIVEN. AT BEDSIDE. ASSISSTED OOB TO USE BEDSIDE COMMODE, VOID X1, SMALL SOFT BM. CLEANED AND ASSISSTED BACK TO BED, REPOSITIONED FOR COMFORT. DENIES OTHER NEEDS. CALL LIGHT WITHIN REACH.
--- NOTE | 2018-09-19 03:04 | NUR ---
REASSESSMENT COMPLETED PER FLOW SHEET, SEE FOR DETAILS. NO ACUTE DISTRESS NOTED. AT BEDSIDE. WILL CONTINUE TO MONITOR.
--- NOTE | 2018-09-19 05:00 | NUR ---
COMPLETE BED BATH GIVEN. COMPLETE BED LINEN CHANGE PROVIDED. TOLERATED WELL.
--- NOTE | 2018-09-19 06:00 | NUR ---
ASSISSTED OOB TO CHAIR. CALL LIGHT WITHIN REACH.
[2018-09-19 06:37] LABS: HEMATOCRIT 29.4 % (36.0-48.0); HEMOGLOBIN 9.8 g/dL (12-16); MCH 29.1 pg (26.0-34.0); MCHC 33.3 g/dL (31.0-37.0); MEAN PLATELET VOLUME 10.7 fL (7.4-10.4); RBC 3.37 10x6/uL (4.00-5.40); RDW 15.7 % (11.5-14.5); WBC 7.8 10x3/uL (4.8-10.8)
[2018-09-19 06:51] LABS: MCV 87.2 fL (80.0-100.0)
[2018-09-19 06:54] LABS: ALBUMIN 2.3 g/dL (3.4-5.0); ALKALINE PHOSPHATASE 94 U/L (46-116); ALT (SGPT) 22 U/L (10-68); BILIRUBIN - TOTAL 0.48 mg/dL (0.2-1.3); CALC OSMOLALITY 273 mosm/kg (275-300); CALCIUM 8.6 mg/dL (8.5-10.1); CARBON DIOXIDE 27.3 mmol/L (21.0-32.0); CHLORIDE - SERUM 104 mmol/L (98-107); CREATININE - SERUM 0.3 mg/dL (0.6-1.3); GLUCOSE 99 mg/dL (74-106); POTASSIUM - SERUM 3.7 mmol/L (3.5-5.1); PROTEIN - SERUM 5.9 g/dL (6.4-8.2); SODIUM 138 mmol/L (136-145); UREA NITROGEN 6 mg/dL (7-18); eGFR NON AFRICAN AMERICAN > 90 mL/min (90-120)
--- NOTE | 2018-09-19 07:40 | NUR ---
SHIFT ASSESSMENT COMPLETED AND CHARTED IN FLOWSHEET. PT DENIES PAIN AT THIS TIME. DAUGHTER AT BEDSIDE. UP IN CHAIR. VSS. NO FEVER. MEAL TRAY SET UP. PAULETTE HOSE ON BOTH LE. MIDSTERNAL DRESSING C/D/I. SUBSTERNAL DRESSING C/D/I. L-SONNY DRAIN IN PLACE. TPM WIRES COILED AND SECURED. RIGHT LEG HARVEST SITES AVILA. NO POTASSIUM WAS 3.7. TREATED PER PROTOCOL WITH 5MEQ AT THIS TIME. WILL CONTINUE TO MONITOR.
--- NOTE | 2018-09-19 08:19 | NUR ---
AM MEDS GIVEN PER ORDERS. PATIENT RATES PAIN 6/10 AT INCISION SITE. PERCOCET GIVEN PER ORDERS. WILL CONTINUE TO MONITOR.
--- NOTE | 2018-09-19 09:21 | NUR ---
Nutrition follow up: Pt is on a full liquid diet order Pt reports tolerating meals well and trying to eat well Pt is drinking Ensure Encouraged >/=50% intake of meals Pt would like to try diet advance and to have more options Spoke with nursing about possibility of advancing diet if medically feasible RD following
--- NOTE | 2018-09-19 09:30 | NUR ---
ASSISTED PT TO BEDSIDE COMMODE. MODERATE AMOUNT OF LOOSE BROWN STOOL NOTED. VOIDED ABOUT 300ML OF URINE. AMBULATED ABOUT 18FT WITH PT. WAS SHAKY WHEN AMBULATING. MAINTAINED O2 SAT ABOVE 90%. CONTINUES ON ROOM AIR. WILL CONTINUE TO MONITOR.
--- NOTE | 2018-09-19 10:10 | NUR ---
AMBULATED PT TO BATHROOM. VOIDED X 1. ASSISTED BACK TO BED. R-AC 22 G PIV INSERTED PER ORDERS X 2 ATTEMPTS. RIJ CVL DC'D PER ORDERS. SUBSTERNAL DRESSING CHANGED PER ORDERS. SONNY DRAIN REMAINS IN PLACE. PT RESTING COMFORTABLY IN BED. WILL CONTINUE TO MONITOR.
--- NOTE | 2018-09-19 11:30 | NUR ---
RE-ASSESSMENT COMPLETED. NO ACUTE CHANGES FROM PREVIOUS ASSESSMENT. DENIES PAIN AT THIS TIME. ON ROOM AIR. NO FEVER. WILL CONTINUE TO MONITOR.
--- NOTE | 2018-09-19 12:05 | NUR ---
AMBULATED TO BATHROOM WITH WALKER AND MODERATE ASSIST. YELLOW URINE NOTED. NO FURTHER NEEDS. WILL CONTINUE TO MONITOR.
--- NOTE | 2018-09-19 12:25 | NUR ---
AMBULATED TO BATHROOM WITH WALKER AND MODERATE ASSIST. VOIDED X 1. ATE ABOUT 30% OF MEAL. DAUGHTER AT BEDSIDE. NO FURTHER NEEDS AT THIS TIME. WILL CONTINUE TO MONITOR.
--- NOTE | 2018-09-19 13:26 | NUR ---
RATES PAIN 5/10 AT INCISION SITE. PERCOCET GIVEN PER ORDERS. WILL COTNINUE TO MONITOR.
--- NOTE | 2018-09-19 15:00 | NUR ---
CHRISTIAN MARINELLI AT BEDSIDE AT THIS TIME.
--- NOTE | 2018-09-19 16:18 | NUR ---
AMBULATED TO BATHROOM WITH WALKER. TOLERATED WELL. SITTING UP IN CHAIR WATCHING TV. DENIES FURTHER NEEDS. WILL CONTINUE TO MONITOR.
--- NOTE | 2018-09-19 17:28 | NUR ---
AMBULATED TO BATHROOM WITH WALKER AND MINIMAL ASSISTANCE. TOLERATED WELL. POOR APPETITE THIS EVENING.
--- NOTE | 2018-09-19 18:03 | NUR ---
AMBULATED TO BATHROOM WITH WALKER WITH MINIMAL ASSISTANCE. LOOSE STOOL NOTED AT THIS TIME. AMBULATED BACK TO CHAIR. NO FURTHER NEEDS. WILL CONTINUE TO MONITOR.
--- NOTE | 2018-09-19 19:04 | NUR ---
REPORT RECEIVED, SHIFT ASSESSMENT COMPLETED PER FLOW SHEET. AAOX4. PPP. NO ACUTE DISTRESS NOTED. AT BEDSIDE. SEE FLOW SHEET FOR COMPLETE ASSESSMENT. CALL LIGHT WITHIN REACH. WILL CONTINUE TO MONITOR.
--- NOTE | 2018-09-19 20:21 | NUR ---
CALL LIGHT ANSWERED, WATER PROVIDED, DENIES OTHER NEEDS. CALL LIGHT WITHIN REACH.
--- NOTE | 2018-09-19 21:20 | NUR ---
CALL LIGHT ANSWERED, ASSISSTED TO BR, VOID X1. ASSISSTED BACK IN BED. DENIES OTHER NEEDS. CALL LIGHT WITHIN REACH.
--- NOTE | 2018-09-19 21:26 | NUR ---
SCHEDULED MEDS GIVEN, WATER PROVIDED. AT BEDSIDE. DENIES NEEDS. CALL LIGHT WITHIN REACH.
--- NOTE | 2018-09-19 22:14 | NUR ---
CALL LIGHT ANSWERED, ASSISSTED TO BR, ABLE TO AMBULATE WITH WALKER WITHOUT PROBLEMS. VOID X1. ASSISSTED BACK IN BED. CALL LIGHT WITHIN REACH.
--- NOTE | 2018-09-19 23:01 | NUR ---
REASSESSMENT COMPLETED PER FLOW SHEET, SEE FOR DETAILS. NO ACUTE CHANGES NOTED. DENIES NEEDS. CALL LIGHT WITHIN REACH. AT BEDSIDE. WILL CONTINUE TO MONITOR.
[2018-09-20] VITALS (24 sets, daily range): BP systolic 107–138; BP diastolic 48–76
--- NOTE | 2018-09-20 01:00 | NUR ---
RESTING, NO ACUTE DISTRESS NOTED. AT BEDSIDE. WILL CONTINUE TO MONITOR. CALL LIGHT WITHIN REACH.
--- NOTE | 2018-09-20 03:17 | NUR ---
REASSESSMENT COMPLETED PER FLOW SHEET, SEE FOR DETAILS. NO ACUTE DISTRESS NOTED. DENIES PAIN OR NEEDS. CALL LIGHT WITHIN REACH.
[2018-09-20 04:01] LABS: HEMATOCRIT 28.9 % (36.0-48.0); HEMOGLOBIN 9.5 g/dL (12-16); MCH 27.8 pg (26.0-34.0); MCHC 32.9 g/dL (31.0-37.0); MCV 84.5 fL (80.0-100.0); MEAN PLATELET VOLUME 10.5 fL (7.4-10.4); RBC 3.42 10x6/uL (4.00-5.40); RDW 15.6 % (11.5-14.5); WBC 7.9 10x3/uL (4.8-10.8)
[2018-09-20 04:15] LABS: ALBUMIN 2.4 g/dL (3.4-5.0); ALKALINE PHOSPHATASE 86 U/L (46-116); ALT (SGPT) 22 U/L (10-68); BILIRUBIN - TOTAL 0.43 mg/dL (0.2-1.3); CARBON DIOXIDE 26.8 mmol/L (21.0-32.0); CHLORIDE - SERUM 105 mmol/L (98-107); GLUCOSE 121 mg/dL (74-106); POTASSIUM - SERUM 3.9 mmol/L (3.5-5.1); PROTEIN - SERUM 6.1 g/dL (6.4-8.2); SODIUM 139 mmol/L (136-145)
[2018-09-20 04:40] LABS: CALC OSMOLALITY 276 mosm/kg (275-300); CREATININE - SERUM 0.5 mg/dL (0.6-1.3); UREA NITROGEN 8 mg/dL (7-18); eGFR NON AFRICAN AMERICAN > 90 mL/min (90-120)
--- NOTE | 2018-09-20 05:00 | NUR ---
C/O NAUSEA AND PAIN, PRN PERCOCET AND ZOFRAN GIVEN. DENIES OTHER NEEDS. CALL LIGHT WITHIN REACH. AT BEDSIDE. WILL CONTINUE TO MONITOR.
--- NOTE | 2018-09-20 06:00 | NUR ---
COMPLETE BED BATH GIVEN. COMPLETE BED LINEN CHANGE PROVIDED. ASSISSTED OOB TO CHAIR. CALL LIGHT WITHIN REACH.
--- NOTE | 2018-09-20 07:15 | NUR ---
SHIFT REPORT RECEIVED. PT SITTING UP IN CHAIR. VISITOR IN ROOM. PT DENIES PAIN AT THIS TIME. HAS PIV R-AC S.L. MIDSTERNAL INCISION CENTER MEDICAL DIRECTOR. SUBTERNAL DRESSING IN PLACE OVER PREVIOUS CT SITES. RIGHT LEG HARVEST SITES HEALING ADEQUATELY. ON ROOM IAR. SHIFT ASSESSMENT COMPLETED AND CHARTED IN FLOWSHEET. NO FURTHER NEEDS AT THIS TIME. WILL CONTINUE TO MONITOR.
--- NOTE | 2018-09-20 09:00 | NUR ---
AMBULATED TO BATHROOM.
--- NOTE | 2018-09-20 09:13 | NUR ---
AM MEDS GIVEN. PT ATE ABOUT 50% OF BREAKFAST TRAY. PHYSICAL THERAPY AT BEDSIDE.
--- NOTE | 2018-09-20 10:15 | NUR ---
AMBULATED TO BATHROOM WITH WALKER. STANDBY ASSIST.
--- NOTE | 2018-09-20 12:28 | NUR ---
AMBULATED TO BATHROOM WITH WALKER AND STANDBY ASSIST. PT ASKING IF SHE CAN HAVE MEDICATION FOR ANXIETY. FEELING SOME ANXIETY AT THIS TIME. SHE SAYS SHE HAS NOT GOTTEN MUCH SLEEP DURING THE NIGHT.
--- NOTE | 2018-09-20 13:40 | NUR ---
DR. BROWN AT BEDSIDE. ORDERED BENADRYL 15MG IV FOR SLEEP PRN. GIVE ONLY IF NEEDED.
--- NOTE | 2018-09-20 15:50 | NUR ---
AMBULATED TO BATHROOM. PT REPORTS HAVING DIARRHEA. WILL CONTINUE TO MONITOR.
--- NOTE | 2018-09-20 17:11 | NUR ---
SITTING UP IN CHAIR EATING DINNER.
--- NOTE | 2018-09-20 17:43 | NUR ---
PT ATE ABOUT 40% OF MEAL. PT REPORTING SOME IRRITATION ON BUTTOCKS DUE TO DIARRHEA. BOUDREOUX BUTT PASTE APPLIED TO AREA. NO FURTHER NEEDS AT THIS TIME. WILL CONTINUE TO MONITOR.
--- NOTE | 2018-09-20 19:09 | NUR ---
REPORT RECEIVED, SHIFT ASSESSMENT COMPLETED PER FLOW SHEET. AAOX4. PPP. RT AC PIV PATENT, NO SIGNS OF INFECTIOR OR INFILTRATION. DENIES NEEDS. NO ACUTE DISTRESS NOTED. SEE FLOW SHEET FOR COMPLETE ASSESSMENT. WILL CONTINUE TO MONITOR.
--- NOTE | 2018-09-20 21:05 | NUR ---
PATIENT IRRITATED, STATES SHE CAN'T SLEEP OR GET COMFORTABLE. REPOSITIONED IN BED, PRN BENDRYL GIVEN. DENIES OTHER NEEDS. CALL LIGHT WITHIN REACH.
--- NOTE | 2018-09-20 23:14 | NUR ---
REASSESSMENT COMPLETED PER FLOW SHEET, SEE FOR DETAILS. NO ACUTE CHANGES NOTED. ASSISSTED OOB TO BR, AMBULATES WITH WALKER WITHOUT PROBLEMS. VOID X1. ASSISSTED BACK TO BED. DENIES OTHER NEEDS. CALL LIGHT WITHIN REACH.
[2018-09-21] VITALS (10 sets, daily range): BP systolic 106–144; BP diastolic 50–92
--- NOTE | 2018-09-21 01:00 | NUR ---
WATER PROVIDED. ASSISSTED TO BR, VOID X1. ASSISSTED BACK IN BED. CALL LIGHT WITHIN REACH.
--- NOTE | 2018-09-21 03:01 | NUR ---
REASSESSMENT COMPLETED PER FLOW SHEET, SEE FOR DETAILS. ASSISSTED OOB TO BR. VOID X1. ASSISSTED BACK IN BED. DENIES OTHER NEEDS. CALL [facility] WITHIN REACH.
--- NOTE | 2018-09-21 05:00 | NUR ---
RESTING, NO ACUTE CHANGES NOTED. DENIES NEEDS AT THIS TIME. WILL CONTINUE TO MONITOR. CALL LIGHT WITHIN REACH.
--- NOTE | 2018-09-21 05:50 | NUR ---
DAUGHTER AT BEDSIDE FOR VISITING HOUR. PATIENT SLEEPING. WOKE UP TO TOUCH. QUESTIONS ANSWERED. UPDATE GIVEN.
--- NOTE | 2018-09-21 06:00 | NUR ---
PATIENT CONFUSED, STATES "WHY AM I IN ASSISTED" DISORIENTED TO PLACE AND SITUATION, REORIENTATION PROVIDED, STATES "OH, I REMEMBER NOW." COMPLETE BED BATH GIVEN. COMPLETE BED LINEN CHANGE PROVIDED. ASSISSTED OOB TO CHAIR. CALL LIGHT AND BELONGINGS WITHIN REACH. WILL CONTINUE TO MONITOR.
--- NOTE | 2018-09-21 06:31 | NUR ---
AT BEDSIDE, UPDATE GIVEN, INFORMED HIM OF PATIENT'S CONFUSION THIS AM. PATIENT STATES "I DID NOT LIKE STAYING BY MYSELF LAST NIGHT" AGREED TO STAY WITH HER THIS AM. BOTH DENY NEEDS AT THIS TIME. WILL CONTINUE TO MONITOR. CALL LIGHT WITHIN REACH.
--- NOTE | 2018-09-21 07:15 | NUR ---
SITTING UP IN CHAIR. STATES SHE'S TIRED. DENIES ANY PAIN AT THIS TIME. HAS PIV ON R-AC S.L. ON ROOM AIR. ALERT AND ORIENTED. MIDSTERNAL INCISION AVILA EDGES APPROXIMATED. NO SIGNS OF INFECTION NOTED. SUBSTERNAL DRESSING IN PLACE. VSS. NO FEVER. SPOUSE AT BEDSIDE. SHIFT ASSESSMENT COMPLETED AND CHARTED IN FLOWSHEET. WILL CONTINUE TO MONITOR.
--- NOTE | 2018-09-21 07:52 | NUR ---
DR. BROWN IN UNIT. NOTIFIED THAT PT HAD SLIGHT CONFUSION THIS MORNING AND THAT FAMILY IS CONCERN THAT SHE MAY HAVE A UTI. ORDERED UA AND URINE CULTURE TO BE COLLECTED VIA IN AND OUT CATH.
--- NOTE | 2018-09-21 09:16 | NUR ---
ATE ABOUT 50% OF BREAKFAST. AMBULATED WITH PT ABOUT 275FT. BM X 1 NOTED. LOOSE STOOL. NO FURTHER NEEDS. WILL CONTINUE TO MONITOR.
--- NOTE | 2018-09-21 09:50 | NUR ---
UA AND URINE CULTURE COLLECTED AT THIS TIME VIA IN AND OUT CATH. STERILE PROCEDURE FOLLOWED. PT TOLERATED WELL. SAMPLE SENT TO LAB.
[2018-09-21] MEDS ORDERED: LOPRESSOR25 MG PO (10:19)
[2018-09-21] MEDS ORDERED: ASPIRIN EC81 M1 PO (10:20)
[2018-09-21] MEDS ORDERED: COLACE100 MG PO (10:22)
[2018-09-21] MEDS ORDERED: K-TAB10 MEQ PO (10:54)
[2018-09-21] MEDS ORDERED: HYDROCODON-ACE1 EAC7 PO (10:56)
[2018-09-21 10:59] LABS: APPEARANCE CLEAR (CLEAR); BILIRUBIN NEGATIVE (NEGATIVE); COLOR YELLOW (YELLOW); GLUCOSE NEGATIVE (NEGATIVE); KETONE NEGATIVE (NEGATIVE); NITRITE NEGATIVE (NEGATIVE); PROTEIN NEGATIVE (NEGATIVE); UROBILINOGEN NORMAL (NORMAL)
--- NOTE | 2018-09-21 11:05 | NUR ---
22 G PIV DC'D WITH CATHETER TIP INTACT.
--- NOTE | 2018-09-21 11:47 | NUR ---
4206 DISCHARGE SUMMARY REVIEWED WITH PATIENT AND PATIENTS DAUGHTER AT BEDSIDE.. DAUGHTER ASSISTING PATIENT WITH DRESSING AFTER MONITORING EQUIPMENT REMAVED . CHRISTIAN RN FOR DR BROWN IN TO SEE PATIENT AND SPOKE WITH PATIENT AND FAMILY RE POST OP AND DISCHARGE ORDERS..
--- NOTE | 2018-09-21 14:09 | MORECARE ---
CASE MANAGEMENT DISCHARGE SUMMARY PATIENT: TUSHAR ALARCON UNIT: [id number] ADM DATE: 09/15/18 AGE: 73 : 44 SEX: F ROOM/BED: [facility] AUTHOR: TRELL GARCIA PHYSICIAN: REFERRING PHYSICIAN: GILBERT BROWN MD DATE OF SERVICE: 09/21/18 Discharge Plan Patient Name: TUSHAR ALARCON Facility: [facility]:[place] : 1945 Planned Disposition: Home Anticipated Discharge Date: Discharge Date: 09/21/2018 Expected LOS: Initial Reviewer: [email or web address] Initial Review Date: 09/20/2018 Generated: 09/21/18 3:09 pm Patient Name: TUSHAR ALARCON Page [phone] at 1409 All edits/amendments must be made on the electronic document DICTATION DATE: 09/21/18 1408 PRODUCE DEPARTMENT SUPERVISOR: SHERRY 09/21/18 1408 RPT#: [id number] DC DATE:09/21/18 STATUS: DIS IN [facility] [address] [place] [address] END OF REPORT
--- NOTE | 2018-09-21 14:17 | MORECARE ---
CASE MANAGEMENT DISCHARGE SUMMARY PATIENT: TUSHAR ALARCON UNIT: [id number] ADM DATE: 09/15/18 AGE: 73 : 43 SEX: F ROOM/BED: [facility] AUTHOR: TRELL GARCIA PHYSICIAN: REFERRING PHYSICIAN: GILBERT BROWN MD DATE OF SERVICE: 09/21/18 Discharge Plan Patient Name: TUSHAR ALARCON Facility: [facility]:[place] : 1945 Planned Disposition: Home Anticipated Discharge Date: Discharge Date: 09/21/2018 Expected LOS: Initial Reviewer: [email or web address] Initial Review Date: 09/20/2018 Generated: 09/21/18 3:17 pm DCPIA - Discharge Planning Initial Assessment Updated by [email or web address]: Uyen Mendoza on 09/21/18 2:09 pm * Is the patient Alert and Oriented? Yes * How many steps to enter\exit or inside your home? * PCP [facility] * Pharmacy [facility] * Preadmission Environment Home with Family * ADLs Independent * Equipment None * List name and contact numbers for known caregivers / representatives who currently or will assist patient after discharge: WILVER ALARCON - SPOUSE- [phone] * Verbal permission to speak to the caregivers and representatives has been obtained from the patient. N/A * Community resources currently utilized None * Additional services required to return to the preadmission environment? No * Can the patient safely return to the preadmission environment? Yes * Has this patient been hospitalized within the prior 30 days at any hospital? No Last DP export: 09/21/18 1:09 p Patient Name: TUSHAR ALARCON Page [id number] at 1417 All edits/amendments must be made on the electronic document DICTATION DATE: 09/21/181416 MANAGER CARDIAC: SHERRY 09/21/181416 RPT#: [id number] DC DATE:09/21/18 STATUS: DIS IN [facility] [address] [place] [address] END OF REPORT
--- NOTE | 2018-09-21 14:28 | MORECARE ---
CASE MANAGEMENT DISCHARGE SUMMARY PATIENT: TUSHAR ALARCON UNIT: [id number] ADM DATE: 09/15/18 AGE: 73 : 44 SEX: F ROOM/BED: [facility] AUTHOR: TRELL GARCIA PHYSICIAN: REFERRING PHYSICIAN: GILBERT BROWN MD DATE OF SERVICE: 09/21/18 Discharge Plan Patient Name: TUSHAR ALARCON Facility: [facility]:[place] : 1945 Planned Disposition: Home Anticipated Discharge Date: Discharge Date: 09/21/2018 Expected LOS: Initial Reviewer: [email or web address] Initial Review Date: 09/20/2018 Generated: 09/21/18 3:28 pm Comments DCP- Discharge Planning Updated by [email or web address]: Uyen Mendoza on 09/21/18 1:[address] LATE ENTRY 09/20/18 @ 1710 Patient Name: TUSHAR ALARCON Admission Status: Urgent Accout number: [id number] Admission Date: 09-15-2018 : 1945 Admission Diagnosis:ATHSCL HEART DISEASE OF [place] CORONARY ARTERY W/O ANG Attending: GILBERT BROWN Current LOS: 6 Anticipated DC Date: Planned Disposition: Home Primary Insurance: MEDICARE A & B Discharge Planning Comments: CM met with patient at bedside and explained CM role. Patient states she lives with her Wilver and plans to return to her home upon discharge. Patient states she didn't have any medical equipment or home health services prior to admission. Patient states she may need a walker upon discharge. CM will continue to follow and assist as needed with discharge planning / needs. Tube Laser Operator: Uyen Mendoza DCPIA - Discharge Planning Initial Assessment Updated by [email or web address]: Uyen Mendoza on 09/21/18 2:09 pm * Is the patient Alert and Oriented? Yes * How many steps to enter\exit or inside your home? * PCP [facility] * [facility] * Preadmission Environment Home with Family * ADLs Independent * Equipment None * List name and contact numbers for known caregivers / representatives who currently or will assist patient after discharge: WILVER ALARCON - SPOUSE- [phone] * Verbal permission to speak to the caregivers and representatives has been obtained from the patient. N/A * Community resources currently utilized None * Additional services required to return to the preadmission environment? No * Can the patient safely return to the preadmission environment? Yes * Has this patient been hospitalized within the prior 30 days at any hospital? 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
--- NOTE | 2018-09-21 14:38 | MORECARE ---
CASE MANAGEMENT DISCHARGE SUMMARY PATIENT: TUSHAR ALARCON UNIT: [id number] ADM DATE: 09/15/18 AGE: 73 : 43 SEX: F ROOM/BED: [facility] AUTHOR: JOSE,TRELL PHYSICIAN: REFERRING PHYSICIAN: GILBERT BROWN MD DATE OF SERVICE: 09/21/18 Discharge Plan Patient Name: TUSHAR ALARCON Facility: [facility]:[place] : 1945 Planned Disposition: Home Anticipated Discharge Date: Discharge Date: 09/21/2018 Expected LOS: Initial Reviewer: [email or web address] Initial Review Date: 09/20/2018 Generated: 09/21/18 3:38 pm Comments DCP- Discharge Planning Updated by [email or web address]: Uyen Mendoza on 09/21/18 1:[address] Nursing spoke with Dr. Brown this am and he approved for patient to have walker upon discharge if needed. D/C IMM explained and served 09/21/18 @1202. Family states they have a walker that patient can use at home. CM gave family contact information if needed. Patient denies any other needs at this time. CM will continue to follow and assist as needed with discharge planning / needs. DCP- Discharge Planning Updated by [email or web address]: Uyen Mendoza on 09/21/18 1:[address] LATE ENTRY 09/20/18 @ 1710 Patient Name: TUSHAR ALARCON Admission Status: Urgent Accout number: [id number] Admission Date: 09-15-2018 : 1945 Admission Diagnosis:ATHSCL HEART DISEASE OF [place] CORONARY ARTERY W/O ANG Attending: GILBERT BROWN Current LOS: 6 Anticipated DC Date: Planned Disposition: Home Primary Insurance: MEDICARE A & B Discharge Planning Comments: CM met with patient at bedside and explained CM role. Patient states she lives with her Wilver and plans to return to her home upon discharge. Patient states she didn't have any medical equipment or home health services prior to admission. Patient states she may need a walker upon discharge. CM will continue to follow and assist as needed with discharge planning / needs. Automobile Rental Clerk: Uyen Mendoza DCPIA - Discharge Planning Initial Assessment Updated by [email or web address]: Uyen Mendoza on 09/21/18 2:09 pm * Is the patient Alert and Oriented? Yes * How many steps to enter\exit or inside your home? * PCP [facility] * [facility] * Preadmission Environment Home with Family * ADLs Independent * Equipment None * List name and contact numbers for known caregivers / representatives who currently or will assist patient after discharge: WILVER ALARCON - [facility]- [phone] * Verbal permission to speak to the caregivers and representatives has been obtained from the patient. N/A * Community resources currently utilized None * Additional services required to return to the preadmission environment? No * Can the patient safely return to the preadmission environment? Yes * Has this patient been hospitalized within the prior 30 days at any hospital? 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
--- NOTE | 2018-09-21 14:56 | MORECARE ---
CASE MANAGEMENT DISCHARGE SUMMARY PATIENT: TUSHAR ALARCON UNIT: [id number] ADM DATE: 09/15/18 AGE: 73 : 43 SEX: F ROOM/BED: [facility] AUTHOR: JOSE,TRELL PHYSICIAN: REFERRING PHYSICIAN: GILBERT BROWN MD DATE OF SERVICE: 09/21/18 Discharge Plan Patient Name: TUSHAR ALARCON Facility: [facility]:[place] : 1945 Planned Disposition: Home Anticipated Discharge Date: Discharge Date: 09/21/2018 Expected LOS: Initial Reviewer: [id number] Initial Review Date: 09/20/2018 Generated: 09/21/18 3:56 pm Comments DCP- Discharge Planning Updated by [email or web address]: Uyen Mendoza on 09/21/18 1:[address] Nursing spoke with Dr. Brown this am and he approved for patient to have walker upon discharge if needed. D/C IMM explained and served 09/21/18 @1202. Family states they have a walker that patient can use at home. CM gave family contact information if needed. Patient denies any other needs at this time. CM will continue to follow and assist as needed with discharge planning / needs. DCP- Discharge Planning Updated by [id number]: Uyen Mendoza on 09/21/18 1:[address] LATE ENTRY 09/20/18 @ 1710 Patient Name: TUSHAR ALARCON Admission Status: Urgent Accout number: [id number] Admission Date: 09-15-2018 : 1945 Admission Diagnosis:ATHSCL HEART DISEASE OF [place] CORONARY ARTERY W/O ANG Attending: GILBERT BROWN Current LOS: 6 Anticipated DC Date: Planned Disposition: Home Primary Insurance: MEDICARE A & B Discharge Planning Comments: CM met with patient at bedside and explained CM role. Patient states she lives with her Wilver and plans to return to her home upon discharge. Patient states she didn't have any medical equipment or home health services prior to admission. Patient states she may need a walker upon discharge. CM will continue to follow and assist as needed with discharge planning / needs. Private Investigator: Uyen Mendoza DCPIA - Discharge Planning Initial Assessment Updated by [email or web address]: Uyen Mendoza on 09/21/18 2:09 pm * Is the patient Alert and Oriented? Yes * How many steps to enter\exit or inside your home? * PCP [facility] * [facility] * Preadmission Environment Home with Family * ADLs Independent * Equipment None * List name and contact numbers for known caregivers / representatives who currently or will assist patient after discharge: WILVER ALARCON - [facility]- [phone] * Verbal permission to speak to the caregivers and representatives has been obtained from the patient. N/A * Community resources currently utilized None * Additional services required to return to the preadmission environment? No * Can the patient safely return to the preadmission environment? Yes * Has this patient been hospitalized within the prior 30 days at any hospital? 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
--- NOTE | 2018-09-22 11:27 | TEE ---
PATIENT:TUSHAR ALARCON MEDICAL RECORD: [id number] LOCATION:[place] [address] AGE OF PATIENT: 73 ADMISSION DATE: 09/15/18 SEX: F REFERRING PHYSICIAN: INTERPRETING PHYSICIAN: MARCIA ERNANDEZ MD TRANSESOPHAGEAL ECHOCARDIOGRAM Date: 09/15/18 JERRICA CHARGE Y INDICATIONS: CABG/AVR PREMEDICATIONS: PATIENT'S RESPONSE PROCEDURE DOPPLER MEASUREMENTS: LVIT LA PA RA LVOT RVOT Asc. Ao AV Gradient Peak 42.0 AV Mean AV Area 1.2 MV Gradient Peak MV Mean MV Area INTERPRETATION: LVd: 2.8 cm LVs: 1.1 cm AVVMAX: 323.0 Doppler: 2-D: COLOR FLOW DOPPLER NORMAL SALINE STUDY: MISCELLANOUS: DIAGNOSIS: PLAN: Professor Of Floriculture:3 Dr. Leach Foil Operator: Katharine SOTO COMMENTS: DATE OF SERVICE: 09/15/2018 PROCEDURE: Transesophageal echo evaluation of valvular structures during aortic valve replacement and bypass surgery. FINDINGS: 1. Left ventricular chamber size is within normal limits. Left ventricular systolic function is normal. Overall ejection fraction estimated at 60%. 2. Left atrium, right atrium and right ventricular chamber sizes are within TRANSESOPHAGEAL ECHOCARDIOGRAM REPORT [id number] SINDY ALARCON normal limits. 3. Valvular structures: Aortic valve demonstrates ghklzeep-dm-epkkgo aortic stenosis with a gradient of 42 mm across the valve. This is not a new finding. The patient is scheduled for aortic valve replacement. The remaining valvular structures have normal structure and motion. 4. Doppler interrogation elsewise reveals trace aortic insufficiency, mild mitral regurgitation, mild tricuspid regurgitation, no other valvular insufficiency or stenosis. 5. No evidence of pericardial effusion or left ventricular thrombus. TRANSINT:[id number] Voice Confirmation ID: [id number] DOCUMENT ID: [id number] at 1127 CC: [id number] DICTATION DATE: 09/16/18 1151 GAME AUTHOR: 09/16/18 1218 DIS IN 09/21/18 [place] [id number] [place] [id number]
== END 2018-09-21 13:20 | disposition home or self-care (01) | DRG 220 ==
LOC: D.SDCHOLD 09-15 05:00 → D.CVICU 09-15 05:00 → D.SDCHOLD 09-15 07:30 → D.CVICU 09-15 12:59
PROVIDERS: ADMIT Thoracic Surgery (Cardiothoracic Vascular Surgery); ATTEND Thoracic Surgery (Cardiothoracic Vascular Surgery)
PROC: 021009W Bypass Coronary Artery, One Artery from Aorta with Autologous Venous Tissue, Open Approach (ICD-10-PCS; 2018-09-15)
PROC: 06BP4ZZ Excision of Right Saphenous Vein, Percutaneous Endoscopic Approach (ICD-10-PCS; 2018-09-15)
PROC: 5A1221Z Performance of Cardiac Output, Continuous (ICD-10-PCS; 2018-09-15)
PROC: B24BZZ4 Ultrasonography of Heart with Aorta, Transesophageal (ICD-10-PCS; 2018-09-15)
PROC: 02100Z9 Bypass Coronary Artery, One Artery from Left Internal Mammary, Open Approach (ICD-10-PCS; principal; 2018-09-15 07:30)
PROC: 02RF08Z Replacement of Aortic Valve with Zooplastic Tissue, Open Approach (ICD-10-PCS; 2018-09-15 07:30)
DX: I25.10 Atherosclerotic heart disease of native coronary artery without angina pectoris (principal); D62 Acute posthemorrhagic anemia; I35.0 Nonrheumatic aortic (valve) stenosis; F03.90 Unspecified dementia, unspecified severity, without behavioral disturbance, psychotic disturbance, mood disturbance, and anxiety; R53.81 Other malaise; I10 Essential (primary) hypertension; R55 Syncope and collapse; R63.0 Anorexia

== ENCOUNTER → 2018-10-09 14:19 | Outpatient (CLI) | payer MEDICARE, BC ==
[2018-09-16 11:46] VITALS: BMI 24.9
[~2018-10-09 14:19] MED LIST changes: +ASPIRIN EC81 M1 PO; +COLACE100 MG PO; +CYMBALTA30 MG; +HYDROCODON-ACE1 EAC7 PO; +K-TAB10 MEQ PO; +LOPRESSOR25 MG PO; +NAMENDA5 MG PO; +OMEPRAZOLE20 M1 PO
[2018-10-09 15:21] LABS: HEMATOCRIT 38.7 % (36.0-48.0); HEMOGLOBIN 12.6 g/dL (12-16); MCH 27.9 pg (26.0-34.0); MCHC 32.6 g/dL (31.0-37.0); MCV 85.8 fL (80.0-100.0); MEAN PLATELET VOLUME 9.7 fL (7.4-10.4); RBC 4.51 10x6/uL (4.00-5.40); RDW 16.5 % (11.5-14.5); WBC 12.1 10x3/uL (4.8-10.8)
[2018-10-09 15:38] LABS: BILIRUBIN - TOTAL 0.24 mg/dL (0.2-1.3); CALCIUM 8.7 mg/dL (8.5-10.1); CARBON DIOXIDE 22.7 mmol/L (21.0-32.0); CREATININE - SERUM 0.8 mg/dL (0.6-1.3); POTASSIUM - SERUM 3.7 mmol/L (3.5-5.1); PROTEIN - SERUM 7.1 g/dL (6.4-8.2)
== END | disposition home or self-care (01) ==
LOC: D.LAB 14:19
PROVIDERS: ATTEND Thoracic Surgery (Cardiothoracic Vascular Surgery)
DX: J90 Pleural effusion, not elsewhere classified (principal); D64.9 Anemia, unspecified

== ENCOUNTER → 2018-10-10 09:28 | Outpatient (CLI) | payer MEDICARE, BC ==
[2018-09-16 11:46] VITALS: BMI 24.9
--- NOTE | 2018-10-10 14:18 | OP ---
PATIENT NAME: TUSHAR ALARCON MEDICAL RECORD: [id number] :43 LOCATION:[place] ADMISSION DATE: SURGEON: GILBERT BARFIELD MD DATE OF OPERATION: 10/10/2018 SURGEON: Gilbert Barfield MD PROCEDURE PERFORMED: Ultrasound-guided left thoracentesis. DESCRIPTION OF PROCEDURE: With the patient seated upright, with the heart rate, blood pressure, and pulse oximetry monitored, ultrasound was used to localize a window in the posterior chest. Then, 1% Xylocaine was used for local anesthetic. After sterile prep and the effusion was bloody in nature, a 2 mm skin incision was made. A total of 500 cc of bloody pleural effusion were removed without difficulty with no apparent residual by ultrasound and the patient in good condition. Chest x-ray revealed no pneumothorax. TRANSINT:[id number] Voice Confirmation ID: [id number] DOCUMENT ID: [id number] GILBERT BARFIELD MD at 1418 CC: [id number] DICTATION DATE: 10/10/18 1053 SENIOR PRODUCT DESIGNER: 10/10/18 1254 REG [facility] [address] [place] [address]
== END | disposition home or self-care (01) ==
LOC: D.OPS 09:28
PROVIDERS: ATTEND Thoracic Surgery (Cardiothoracic Vascular Surgery)
DX: J90 Pleural effusion, not elsewhere classified (principal); Z01.812 Encounter for preprocedural laboratory examination

== ENCOUNTER → 2018-10-18 09:49 | Outpatient (CLI) | payer MEDICARE, BC ==
[2018-09-16 11:46] VITALS: BMI 24.9
== END | disposition home or self-care (01) ==
LOC: D.RAD 09:49
PROVIDERS: ATTEND Thoracic Surgery (Cardiothoracic Vascular Surgery)
DX: J90 Pleural effusion, not elsewhere classified (principal)

== ENCOUNTER → 2018-11-22 09:13 | Outpatient (CLI) | payer MEDICARE, BC ==
[2018-09-16 11:46] VITALS: BMI 24.9
== END | disposition home or self-care (01) ==
LOC: D.LAB 09:13 → EDSTATUS 09:27
PROVIDERS: ATTEND Thoracic Surgery (Cardiothoracic Vascular Surgery)
DX: J90 Pleural effusion, not elsewhere classified (principal)